=== PATIENT | female | born 1960 | race Caucasian/White ===

== ENCOUNTER 2017-01-19 17:17 | Emergency (ER) | payer OTHER ==
--- NOTE | ~2017-01-19 | CR63 ---
[facility]. [facility] A Service of [facility] & [facility] / [facility] RADIOLOGY TEXT RESULTS PATIENT: WOLFGANG DE PAZ LOCATION: SED : 60 UNIT #: [id number] AGE: [address]: CAMRON COFFMAN PA-C SEX: F ORDER DR: [id number] [address] [address] [id number] E MR#: [id number] Acc #: [id number] NAME: WOLFGANG DE PAZ. : 1960 SEX: F STUDY DATE/TIME: 01/19/2017 17:13 UNIT: SED ROOM: STUDY DESCRIPTION: CR Chest 2 View Attending Physician: Camron Coffman Pa-C Ordering Physician: Staff Doctor Not On Primary Care Physician: Miguelito Wu M.D. MEDICAL IMAGING REPORT This report is preliminary unless electronic signature is present. EXAM PA and lateral chest HISTORY Shortness of air and chest pain for 2 days. Cough and fever. FINDINGS 2 views of the chest demonstrate the cardiac size and pulmonary vascularity are normal. No infiltrates or effusions. Mild interstitial prominence in both lungs could be secondary to interstitial edema or scarring. Mild hypertrophic spurring in the mid thoracic spine. IMPRESSION No acute findings. No definite active disease. Dictated by... Jerome Honeycutt M.D. THIS IS AN ELECTRONICALLY VERIFIED REPORT Jerome Honeycutt M.D. at 01/20/2017 1:24 PM DFL/rnr TD: 01/20/2017 02:06 JOB #: [id number] MEDICAL IMAGING REPORT Page 1 of 1
--- NOTE | ~2017-01-19 | CT16 ---
[facility] A Service of [facility] & [facility] RADIOLOGY TEXT RESULTS PATIENT: WOLFGANG DE PAZ LOCATION: SED : 60 UNIT #: [id number] AGE: [address]: CAMRON COFFMAN PA-C SEX: F ORDER DR: [id number] [address] [address] [id number] E MR#: [id number] Acc #: [id number] NAME: WLOFGANG DE PAZ. : 1960 SEX: F STUDY DATE/TIME: 01/19/2017 20:03 UNIT: SED ROOM: STUDY DESCRIPTION: CT Angio Chest for PE Attending Physician: Camron Coffman Pa-C Ordering Physician: Drake Mancilla M.D. Primary Care Physician: Miguelito Wu M.D. MEDICAL IMAGING REPORT This report is preliminary unless electronic signature is present. EXAM CT angiogram of the chest, pulmonary embolism protocol HISTORY Pain, short of air. Shortness of breath has been present for 3 days. The patient complains of cough and congestion, chest pain and tightness with a history of asthma, COPD, diabetes and hypertension. TECHNIQUE This CT exam was performed with one or more of the following radiation dose reduction techniques: automatic exposure control, adjustment of mA and/or kV according to patient size, and iterative reconstruction. FINDINGS CT of the chest performed during the intravenous administration of 100 mL of Isovue 370 with imaging acquired in the axial plane followed by 3-D coronal and MIP reconstructed images for the purpose of CT pulmonary angiography. There is earlier chest x-ray. There is no evidence for thoracic aortic dissection. No pulmonary embolism. No pericardial effusion. Allowing for the presence of contrast, there is probably significant coronary artery calcification present. Please correlate for clinical evidence of coronary artery disease. Allowing for timing of the contrast, I suspect that there is some fatty infiltration of the liver also. There is one prominent right inferior hilar node about 1.0 cm in diameter. Similar left inferior hilar node. These are nonspecific. No mediastinal or axillary lymphadenopathy is suspected. There is enlargement of right side of the thyroid gland with some heterogeneity inferiorly which should be further evaluated with a follow-up non-emergent thyroid ultrasound. Area of interest is probably about 1.5 cm in dimension. There is no pneumothorax or pleural effusion. Small amount of atelectasis or scarring at the left base. [facility]. [facility] A Service of [facility] RADIOLOGY TEXT RESULTS PATIENT: WOLFGANG DE PAZ LOCATION: [facility] : 60 UNIT #: [id number] AGE: [address]: CAMRON COFFMAN PA-C SEX: F ORDER DR: IMPRESSION 1. No evidence for pulmonary embolus, pleural effusion, pericardial effusion or thoracic aortic dissection. No pneumothorax. 2. There are prominent coronary artery calcifications likely and please correlate for clinical evidence of significant coronary artery disease. 3. There is a lesion in the medial right lobe of the thyroid gland inferiorly which should be further evaluated with a non-emergent thyroid ultrasound. It is nonspecific at this time. 4. Suspect fatty infiltration of the liver allowing for the timing of the contrast bolus. 5. No significant acute appearing parenchymal infiltrate. No suspicion for congestive failure. Probably minor atelectasis or scarring at the left lung base. 6. A few prominent hilar lymph nodes are seen which are very nonspecific. Dictated by... Isha Paz M.D. THIS IS AN ELECTRONICALLY VERIFIED REPORT Isha Paz M.D. at 01/20/2017 8:51 PM [place] TD: 01/20/2017 10:17 JOB #: [id number] MEDICAL IMAGING REPORT Page 1 of 1
--- NOTE | ~2017-01-19 | EKG ---
PATIENT: WOLFGANG DE PAZ UNIT #: [id number] Ventricular Rate: 83 BPM Atrial Rate: 83 BPM P-R Interval: 180 ms QRS Duration: 82 ms Q-T Interval: 376 ms QTC Calculation(Bezet): 441 ms P Heaters: 73 degrees Calculated R Heaters: 25 degrees Calculated T Heaters: 53 degrees Diagnosis Line: Normal sinus rhythm Diagnosis Line: Nonspecific ST abnormality Diagnosis Line: Borderline ECG Diagnosis Line: No previous ECGs available Diagnosis Line: Confirmed by CARRIE KAUR MD ([id number]) on 01/31/2017 Diagnosis Line: 7:56:05 PM INTERPRETING MD: VINCENT BARNES
[~2017-01-19 17:17] MED LIST: ALBUTEROL17 GM INH; BENTYL20 M1 PO; GABAPENTIN600 MG PO; GLUCOPHAGE500 M1 PO; HYDROCODONE-A1 UDTA4 PO; LIPITOR40 MG PO; SPIRIVA18 MCG INH; TIZANIDINE HCL4 M1 PO; ZESTRIL40 MG PO
[2017-01-19 18:11] LABS: BASOPHIL# 0.1 X10e3 (0-0.3); BASOPHIL% 1.3 % (0-2.5); EOSINOPHIL# 0.1 X10e3 (0-0.7); EOSINOPHIL% 1.2 % (0.0-7.0); HEMOGLOBIN 15.4 gm/dL (12.0-16.0); LYMPHOCYTE# 2.3 X10e3 (1.0-3.5); MEAN CELL VOLUME 90.8 FL (83-96); MEAN CORPUSCULAR HEMOGLOBIN 30.4 PG (28-34); MEAN CORPUSCULAR HGB CONC 33.5 g/dL (30-36); MEAN PLATELET VOLUME 9.8 FL (6.5-11.5); MONOCYTE# 0.4 X10e3 (0-1.0); MONOCYTE% 3.8 % (3.0-12.0); NEUTROPHIL# 7.2 X10e3 (1.5-7.1); NEUTROPHIL% 70.7 % (40-75); PLATELET COUNT 167 X10e3 (140-420); RED BLOOD COUNT 5.06 X10e (3.90-5.30); RED CELL DISTRIBUTION WIDTH 13.5 % (11.0-15.5); WHITE BLOOD COUNT 10.1 X10e3 (4.0-10.5)
[2017-01-19 18:13] LABS: DIFF IND NO
[2017-01-19 18:22] LABS: POC - CKMB 1.5 ng/mL (0.0-7.9)
[2017-01-19 18:22] LABS: INFLUENZA A NEG (NEG); INFLUENZA B NEG (NEG)
[2017-01-19 18:23] LABS: POC - MYOGLOBIN 53.1 ng/mL (0.0-169.0); POC - TROPONIN <0.05 ng/mL (<=0.05)
[2017-01-19 18:33] LABS: URINE SOURCE CLEAN CATCH
[2017-01-19 18:35] LABS: URINE APPEARANCE CLEAR; URINE BILIRUBIN NEG (NEG); URINE BLOOD 1+ (NEG); URINE COLOR YELLOW; URINE GLUCOSE NEG (NORM); URINE KETONE NEG (NEG); URINE LEUKOCYTE ESTERASE NEG (NEG); URINE NITRATE NEG (NEG); URINE PH 5.5 (5-8); URINE PROTEIN 2+ (NEG); URINE SPECIFIC GRAVITY >=1.030 (1.003-1.035); URINE UROBILINOGEN 0.2 MG/DL (NORM)
[2017-01-19 18:40] LABS: MICRO INDICATED? YES
[2017-01-19 18:46] LABS: CULTURE INDICATED? NO; URINE BACTERIA NEG (NEG); URINE MUCUS PRESENT; URINE SQUAMOUS EPITHELIAL CELL OCCAS /[HPF]
[2017-01-19 18:57] LABS: ALBUMIN SERUM 4.1 g/dL (3.5-5.0); BILIRUBIN, DIRECT 0.2 mg/dL (0.0-0.2); BILIRUBIN,INDIRECT -0.1 mg/dL (0.0-0.9); BILIRUBIN,TOTAL 0.1 mg/dL (0.2-2.0); BUN/CREATININE RATIO 12.5; CALCIUM SERUM 9.2 mg/dL (8.4-10.2); CREATININE SERUM 0.8 mg/dL (0.6-1.4); GLOM FILT RATE Estimated 82.5 mL/min (>60); PROTEIN TOTAL SERUM 7.1 g/dL (6.0-8.3)
[2017-01-19 20:43] LABS: ARTERIAL BLD GAS O2 SATURATION 92.3 % (90.0-100.0); ARTERIAL BLOOD GAS CARBOXY HB 4.6 %sat (0.0-9.0); ARTERIAL BLOOD GAS HCO3 23.2 mmol/L
[2017-01-19 20:44] LABS: ARTERIAL BLOOD GAS ALLEN TEST NORMAL; ARTERIAL BLOOD GAS ART SITE LEFT BRACHIAL; ARTERIAL DRAW? YES
== END 2017-01-19 22:59 | disposition hospice, home (50) ==
LOC: SED 17:17
PROVIDERS: Physician Assistant
DX: J44.1 Chronic obstructive pulmonary disease with (acute) exacerbation (principal); E11.9 Type 2 diabetes mellitus without complications; J45.909 Unspecified asthma, uncomplicated; I10 Essential (primary) hypertension; F17.210 Nicotine dependence, cigarettes, uncomplicated; Z90.710 Acquired absence of both cervix and uterus; Z88.5 Allergy status to narcotic agent; Z88.2 Allergy status to sulfonamides
CPT/HCPCS: 36415; 36600; 71020; 71275; 80048; 80076; 81003; 82553; 82803; 82947; 83874; 83880; 84484; 85025; 87804; 93005; 94640; 96374; 99285; J1100; Q9967